=== PATIENT | female | born 1985 | race Two or more races ===

== ENCOUNTER 2018-05-17 07:37 | Emergency (ER) | payer MEDICARE, OTHER ==
[~2018-05-17] VITALS: Ht 162.6 cm; Wt 128.0 kg
[2018-05-17 07:45] VITALS: BP 121/71
[2018-05-17] MEDS ORDERED: CYCLOBENZAPRINE 10 MG TABLET ONE (08:55)
[2018-05-17] MEDS ORDERED: morphine SULFATE 10 MG/ML, 1ML ONE (08:56)
[2018-05-17] MEDS ORDERED: PLEASE ENTER ALLERGIES MC SCH (09:00)
[2018-05-17] MEDS ORDERED: CYCLOBENZAPRINE 10 MG TABLET PO ONE (09:00)
[2018-05-17] MEDS ORDERED: morphine SULFATE 10 MG/ML, 1ML IVPush ONE (09:00)
[2018-05-17] MEDS ORDERED: OXYcodone/APAP 10/325MG TABLET ONE (09:27)
[2018-05-17] MEDS ORDERED: OXYcodone/APAP 10/325MG TABLET PO ONE (09:30)
[2018-05-17] MEDS ORDERED: MORPHINE SULFATE 4 MG/ML, 1ML IVPush ONE (10:30)
[2018-05-17] MEDS ORDERED: MORPHINE SULFATE 4 MG/ML, 1ML ONE (11:05)
[2018-05-17] MEDS ORDERED: OXYMETAZOLINE NASAL SPRAY 0.05%, 15ML ONE (11:05)
[2018-05-17 11:17] LABS: MD YES; MEAN CORPUSCULAR HEMOGLOBIN 30.9 pg (27.0-34.8); MEAN CORPUSCULAR VOLUME 90.7 fL (80-100); MEAN PLATELET VOLUME 11.5 fL (7.4-10.4); PLATELET COUNT 286 x10^3/uL (130-400); RED BLOOD COUNT 4.98 x10^6/uL (3.82-5.3); RED CELL DISTRIBUTION WIDTH 15.1 % (9.6-15.2)
[2018-05-17 11:21] LABS: ANION GAP 9 mmol/L (5-15); CHLORIDE 118 mmol/L (98-107); CREATININE 0.95 mg/dL (0.55-1.02)
[2018-05-17 11:28] LABS: BAND#(MANUAL) 0.07 x10^3/uL; BANDS%(MANUAL) 1 % (0-7); BASOS#(MANUAL) 0.07 x10^3/uL (0-0.1); BASOS% (MANUAL) 1 % (0-1); EOS% (MANUAL) 3 % (1-7); METAMYELOCYTES# (MANUAL) 0.07 x10^3/uL (0-0); METAMYELOCYTES% (MANUAL) 1 % (0-1); REACTIVE LYMPHS # (MANUAL) 0.07 x10^3/uL (0-0); REACTIVE LYMPHS % (MANUAL) 1 % (0-0); SEG#(MANUAL) 2.08 x10^3/uL (1.8-6.8); SEGS% (MANUAL) 32 % (42-75)
[2018-05-17] MEDS ORDERED: OXYMETAZOLINE NASAL SPRAY 0.05%, 15ML NAS ONE (11:30)
[2018-05-17 11:36] LABS: <PLATELET ESTIMATE> ADEQUATE; <RBC MORPHOLOGY> NORMAL; LYMPH#(MANUAL) 3.84 x10^3/uL (1-3.4); LYMPHS% (MANUAL) 59 % (22-44); MONOS#(MANUAL) 0.13 x10^3/uL (0.3-2.7); MONOS% (MANUAL) 2 % (2-9)
[2018-05-17 11:37] LABS: GIANT PLATELETS 1+; LARGE PLATELETS 1+
== END 2018-05-17 13:25 | disposition home or self-care (01) ==
LOC: ED 09:27
DX: M54.5 Low back pain (principal); G89.29 Other chronic pain; I11.9 Hypertensive heart disease without heart failure; H54.40 Blindness, one eye, unspecified eye; E11.9 Type 2 diabetes mellitus without complications
CPT/HCPCS: 36415; 72072; 72110; 74160; 80048; 84703; 85025; 96374